=== PATIENT | male | born 1970 | race Caucasian/White ===

== ENCOUNTER 2016-04-09 20:10 | Emergency (ER) | payer OTHER ==
[2016-04-09 20:24] VITALS: BP 159/100; PULSE 84; RESP 15; TEMP 98.1; O2SAT 94
--- NOTE | 2016-04-09 20:48 | DX ---
Right Foot , Three History:Pain and swelling of great toe post fall trauma a few days ago. Findings: Bandaging material overlies the toe which obscures fine bony detail. No fracture or disloca tion is identified. There is degenerative narrowing of the first metatarsal phalangeal joint associat ed with some marginal spur small spurs and degenerative cyst consistent with osteoarthritis. Overall mineralization is normal. Impression: Nothing acute identified. 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
--- NOTE | 2016-04-09 21:55 | UCPHY ---
H & P Time Seen by Provider: 04/09/16 21:33 Patient Type: New HPI/ROS: CHIEF COMPLAINT: right great toe pain HISTORY OF PRESENT ILLNESS: Patient is a 38-year-old male presents emergency department with right great toe pain. Patient states he slipped on the ice . He developed right toe pain. It is not improved so she came to be evaluated today. His pain is moderate. It is worse with movement. He has no other injury. Denies other foot, ankle or knee discomfort. No previous injury at that location. Patient does not have a history of gout. REVIEW OF SYSTEMS: Negative Past Medical/Surgical History: Hypertension, migraine, low back pain Social history: The patient does not smoke Smoking Status: Former smoker Physical Exam: Vitals noted General Appearance: Alert and no distress. Head: Pupils equal. Normal. Respiratory: No respiratory distress. Cardiac: regular rate and rhythm. Extremities: patient has mild swelling at the base of his right great toe. There is no erythema or warmth. Brisk capillary refill. Foot is otherwise nontender with no palpable mass. Ankle is nontender with no signs of trauma. Skin: No rashes or lesions. Neuro: Alert. Normal mood and affect. Constitutional: Initial Vital Signs Temperature (C) 36.7 C 04/09/16 20:19 Heart Rate 84 04/09/16 20:19 Respiratory Rate 15 04/09/16 20:19 Blood Pressure 159/100 H 04/09/16 20:19 O2 Sat (%) 94 04/09/16 20:19 O2 Delivery Mode Room Air Allergies/Adverse Reactions: NSAIDS (Non-Steroidal Anti-Inflamma Allergy (Verified 04/09/16 20:18) Home Medications: Medication Instructions Recorded Lisinopril 04/09/16 Topamax 04/09/16 oxyCODONE IR 04/09/16 Medical Decision Making ED Course/Re-evaluation: In urgent care and x-ray was ordered. Right foot x-ray: Please refer the dictated report. There is osteoarthritis at the 1st metatarsal phalangeal joint. No fracture or dislocation. I discussed the results with the patient. I answered all his questions. He was placed in a same some boot for comfort and treatment. Will follow up with Orthopedics. He was given contact information upon discharge. He will return with worsening symptoms. Patient did not want pain medication. Differential Diagnosis: My differential includes but is not limited to fracture, dislocation, sprain, contusion, gout, pseudogout Departure - Departure Disposition: Home, Routine, Self-Care Clinical Impression: Pain of right great toe Condition: Good Instructions: Swollen Joint (ED) Additional Instructions: X-ray of your foot and toe showed osteoarthritis but no fracture or dislocation. Wear your boot and follow up with Orthopedics. Referrals: GAURANG BANEGAS [Primary Care Provider] - As per Instructions Manuel Ortez MD [Medical Doctor] - 5-7 days, call for appt. - PQRS PQRS Measurement: My PQRS negative my PQRS negative my PQRS negative my PQRS negative 134: Depression screening and followup, PRIME MD-PHQ2 (12 years and older) Over the last 2 weeks, how often have you been bothered by any of the following problems? 1. Feeling down, depressed, or hopeless? 2. Little interest or pleasure in doing things? Patient answered no to both 1 and 2 130: Documentation of medications. Reviewed all patient medications, doses, route and frequency. 226: Do you smoke? No.
== END 2016-04-09 22:09 | disposition home or self-care (01) ==
LOC: CED 20:10
PROC: 2W3SXYZ Immobilization of Right Foot using Other Device (ICD-10-PCS; principal; 2016-04-09)
DX: M79.674 Pain in right toe(s) (principal); M19.071 Primary osteoarthritis, right ankle and foot
CPT/HCPCS: 73630-PO; 99203-PO; G0463-PO; L4386